=== PATIENT | female | born 1965 | race Caucasian/White ===

== ENCOUNTER 2019-10-01 07:23 | Emergency (ER) | payer BC, OTHER ==
[~2019-10-01] VITALS: Ht 160 cm; Wt 101.2 kg
[2019-10-01 07:32] VITALS: BP 144/82
[2019-10-01] MEDS ORDERED: FLUORESCEIN SOD 1 MG TEST STRIP RIGHTEYE ONE (07:45)
[2019-10-01] MEDS ORDERED: TETRACAINE HCL 0.5% OPTH(EYE) SOLN 4ML RIGHTEYE ONE (07:45)
[2019-10-01] MEDS ORDERED: SODIUM CHLORIDE 0.9% 1,000 ML IV ONE (08:15)
== END 2019-10-01 08:43 | disposition home or self-care (01) ==
LOC: ER 07:23
DX: T26.61XA Corrosion of cornea and conjunctival sac, right eye, initial encounter (principal); E78.00 Pure hypercholesterolemia, unspecified; I10 Essential (primary) hypertension; Z88.0 Allergy status to penicillin; Z88.2 Allergy status to sulfonamides; Z88.8 Allergy status to other drugs, medicaments and biological substances; Y93.89 Activity, other specified; Y92.89 Other specified places as the place of occurrence of the external cause; Y99.8 Other external cause status
CPT/HCPCS: 99283; J7030